=== PATIENT | female | born 1995 | race Caucasian/White ===

== ENCOUNTER 2022-10-30 22:34 | Emergency (ER) | payer OTHER ==
[~2022-10-30] VITALS: Ht 172.7 cm; Wt 54.4 kg
[2022-10-30 22:43] VITALS: BP 101/72
--- NOTE | 2022-10-30 22:58 | NUR ---
Urine collected and sent to lab
[2022-10-30] MEDS ORDERED: PHENAZOPYRIDINE 100 MG TAB PO ONE (23:05)
[2022-10-30 23:06] LABS: APPEARANCE,URINE CLEAR (CLEAR); BILIRUBIN,URINE NEGATIVE (NEGATIVE); BLOOD, URINE 3+ (NEGATIVE); COLOR,URINE YELLOW (YELLOW); LEUKOCYTE ESTERASE ,URINE 2+ (NEGATIVE); NITRITE, URINE NEGATIVE (NEGATIVE); PH,URINE 8.5 (5.0-9.0); UGLUCOSE NEGATIVE (NEGATIVE)
[2022-10-30 23:17] LABS: RBC,URINE >20 (MANY) /HPF (0-5)
[2022-10-30] MEDS ORDERED: PYR100 PO (23:36)
[2022-10-30] MEDS ORDERED: CEPH-588 PO (23:36)
[2022-10-30 23:47] VITALS: BP 101/72
--- NOTE | 2022-10-30 23:48 | NUR ---
Patient discharged with v/s stable. Written and verbal after care instructions given and explained New Rx keflex and pyridium. Patient verbalized understanding. Ambulatory with steady gait. All questions addressed prior to discharge. Advised to follow up with PMD.
== END 2022-10-30 23:47 | disposition home or self-care (01) ==
LOC: MED 22:34
DX: N39.0 Urinary tract infection, site not specified (principal); Z79.2 Long term (current) use of antibiotics
CPT/HCPCS: 81001; 81025; 87086; 87491; 99283

== ENCOUNTER 2023-08-20 01:22 | Emergency (ER) | payer OTHER ==
[~2023-08-20] VITALS: Ht 170.2 cm; Wt 56.7 kg
[~2023-08-20 01:22] MED LIST: CEPH-588 PO; PYR100 PO
[2023-08-20 01:32] VITALS: BP 105/66; PULSE 83; RESP 16; TEMP 98; O2SAT 98
[2023-08-20 02:24] LABS: APPEARANCE,URINE CLEAR (CLEAR); BILIRUBIN,URINE NEGATIVE (NEGATIVE); BLOOD, URINE 3+ (NEGATIVE); COLOR,URINE YELLOW (YELLOW); LEUKOCYTE ESTERASE ,URINE 2+ (NEGATIVE); NITRITE, URINE NEGATIVE (NEGATIVE); PROTEIN,URINE NEGATIVE (NEGATIVE); UGLUCOSE NEGATIVE (NEGATIVE); UROBILINOGEN,URINE 0.2 EU/dL (0.2 - 1)
[2023-08-20 02:28] LABS: BACTERIA,URINE 10-30 (MOD) /HPF (None Seen); MUCUS,URINE 1+ /LPF (None Seen); RBC,URINE 0-5 /HPF (0-5); SQUAMOUS EPITHELIAL CELL,UR 0-3 (FEW) /LPF (0-3 (FEW))
[2023-08-20] MEDS ORDERED: CIPR500T4 PO (02:42)
[2023-08-20 02:45] VITALS: BP 105/66; PULSE 83; RESP 16; TEMP 98; O2SAT 98
== END 2023-08-20 02:45 | disposition home or self-care (01) ==
LOC: MED 01:22
DX: N39.0 Urinary tract infection, site not specified (principal); Z79.899 Other long term (current) drug therapy; Z79.2 Long term (current) use of antibiotics
CPT/HCPCS: 74018; 81001; 81025; 87086; 99284

== ENCOUNTER 2024-04-02 02:45 | Emergency (ER) | payer OTHER ==
[~2024-04-02] VITALS: Ht 175.3 cm; Wt 54.4 kg
[~2024-04-02 02:45] MED LIST changes: +CIPR500T4 PO
[2024-04-02 02:47] VITALS: BP 119/83; PULSE 82; RESP 16; TEMP 208.2; TEMP 97.9; O2SAT 99
[2024-04-02 03:16] LABS: BASOPHILS % (AUTO) 0.2 % (0.0-2.0); EOSINOPHILS # (AUTO) 0.1 K/uL (0-0.4); EOSINOPHILS % (AUTO) 0.8 % (0.0-4.0); HEMATOCRIT 38.7 % (36-48); HEMOGLOBIN 12.9 g/dL (12.0-16.0); LYMPHOCYTES # (AUTO) 3.4 K/uL (2.5-16.5); LYMPHOCYTES % (AUTO) 29.8 % (20.5-51.1); MEAN CORPUSCULAR HEMOGLOBIN 31 pg (27-31); MEAN CORPUSCULAR HGB CONC 33 g/dL (33-37); MEAN CORPUSCULAR VOLUME 92.3 fL (80-94); MONOCYTES # (AUTO) 0.8 K/uL (0.8-1.0); MONOCYTES % (AUTO) 7.1 % (1.7-9.3); NEUTROPHILS # (AUTO) 7.1 K/uL (1.8-7.7); NEUTROPHILS % (AUTO) 62.1 % (42.2-75.2); PLATELET COUNT (AUTO) 283 K/uL (140-450); RED BLOOD CELL COUNT(AUTO) 4.19 MIL/uL (4.20-5.40); WHITE BLOOD COUNT (AUTO) 11.4 K/uL (4.8-10.8)
[2024-04-02] MEDS: ONDANSETRON 4 MG ODT PO ONE (03:21)
[2024-04-02 03:24] LABS: ANION GAP 14.5 (8-16); CALCIUM 9.4 mg/dL (8.5-10.1); CREATININE 1.1 mg/dL (0.6-1.3); POTASSIUM 3.5 mmol/L (3.5-5.1)
[2024-04-02 03:25] VITALS: O2SAT 99
[2024-04-02 04:13] LABS: APPEARANCE,URINE CLEAR (CLEAR); BILIRUBIN,URINE NEGATIVE (NEGATIVE); BLOOD, URINE NEGATIVE (NEGATIVE); COLOR,URINE YELLOW (YELLOW); LEUKOCYTE ESTERASE ,URINE NEGATIVE (NEGATIVE); NITRITE, URINE NEGATIVE (NEGATIVE); PH,URINE 7.5 (5.0-9.0); PROTEIN,URINE NEGATIVE (NEGATIVE); UGLUCOSE NEGATIVE (NEGATIVE)
[2024-04-02] MEDS ORDERED: HYDR25CA1 PO (04:25)
== END 2024-04-02 04:36 | disposition home or self-care (01) ==
LOC: MED 02:45
DX: F41.9 Anxiety disorder, unspecified (principal); R11.0 Nausea; R42 Dizziness and giddiness; Z79.2 Long term (current) use of antibiotics; Z79.899 Other long term (current) drug therapy
CPT/HCPCS: 36415; 80048; 81003; 81025; 84484; 85025; 93005; 99284; Q0162